=== PATIENT | male | born 1970 | race Caucasian/White ===

== ENCOUNTER 2020-05-16 10:22 | Outpatient (CLI) | payer OTHER | END 2020-05-16 10:23 | disposition home or self-care (01) | LOC: CTENTCT 10:22 | PROVIDERS: ATTEND Student in an Organized Health Care Education/Training Program | DX: H90.5 Unspecified sensorineural hearing loss (principal) | CPT/HCPCS: 70480 ==

== ENCOUNTER 2020-07-31 06:09 | Day surgery (SDC) | payer OTHER ==
[2020-07-30 13:43] VITALS: BMI 33.7
[2020-07-31] MEDS ORDERED: Lidocaine 1% w/Epinephrine 1:100K 20 ML VIAL ONE (06:28)
[2020-07-31] MEDS ORDERED: AFRIN NASAL MIST 15 ML BOT ONE ×2 (06:29→06:49)
[2020-07-31] MEDS ORDERED: Ciprofloxacin 0.2% Otic (0.25ML CONTAINER) ONE (06:29)
[2020-07-31] MEDS ORDERED: Fentanyl 100 MCG/2 ML VIAL ONE ×2 (06:47→09:53)
[2020-07-31] MEDS ORDERED: SUGAMMADEX SODIUM 200 MG/2 ML VIAL ONE (06:48)
[2020-07-31] MEDS ORDERED: Famotidine/PF 20 mg/2ml Vial ONE (06:48)
[2020-07-31] MEDS ORDERED: Bacitracin Zinc Ointment 30 gm TUBE ONE (07:52)
[2020-07-31] MEDS ORDERED: PHENYLEPHRINE-NS 100 MCG/ML 10 ML SYRINGE ONE (10:39)
[2020-07-31] MEDS ORDERED: Dexamethasone 20 MG/5 ML VIAL ONE (10:39)
[2020-07-31] MEDS ORDERED: Lidocaine 1% PF 5 ML VIAL ONE (10:39)
[2020-07-31] MEDS ORDERED: Ondansetron PF 4 MG/2 ML Vial ONE (10:39)
[2020-07-31] MEDS ORDERED: PROPOFOL 200 MG/20 ML VIAL ONE (10:39)
--- NOTE | 2020-08-01 07:29 | OP ---
DATE OF PROCEDURE: 07/31/2020 PREOPERATIVE DIAGNOSES: 1. Chronic Eustachian tube dysfunction 2. Septal deviation, turbinate hypertrophy and nasal valve collapse. POSTOPERATIVE DIAGNOSES: 1. Chronic Eustachian tube dysfunction 2. Septal deviation, turbinate hypertrophy and nasal valve collapse. PROCEDURES PERFORMED: 1. Bilateral myringotomy tubes. 2. Septoplasty, submucosal resection of inferior turbinates, and reconstruction of nasal valves and eustachian tube dilation. PERMIT: Procedures, benefits, risks including bleeding, infection, injury from anesthesia, allergic reaction, damage to the eardrum necessitating revision and repair, and scarring necessitating revision or repair were discussed and alternatives reviewed with the patient and family, who expressed understanding of the information. The consent form was signed and witnessed and a copy of the consent form is available in the paper chart. INDICATIONS: The patient presenting to the clinic with chronic nasal congestion, ear fullness and pressure which is uncomfortable that was refractory to medical therapy and autoinsufflation. Patient also noted nasal congestion with exam findings of septal deviation, turbinate hypertrophy and severe nasal valve collapse causing persistent nasal congestion and difficulty breathing, which was recalcitrant to medical management. Patient is now brought to the operating room for operative treatment. ASSISTANTS: None. FINDINGS: 1. Bilateral narrow ear canal. No perforation noted to the eardrum. 2. Severe septal deviation with septal spurs, turbinate hypertrophy and nasal valve collapse. DESCRIPTION OF OPERATION: Procedure #1: The patient was brought to the operating room, laid supine on the operating room table. Anesthesia was induced. A complete time-out was performed before commencement of the surgical procedure. Attention was turned to the right ear first. Microscope was brought in and the right ear canal was cleaned of obstructing cerumen. Next, the tympanic membrane was evaluated and found to be intact. There was no clear effusion seen at this time. A myringotomy blade was used to make a small radial incision in the inferior quadrant. Next, pressure equalizing tube was brought in place and seated in the incision with an alligator forceps. A Perry needle was then used to push the ear tube into a seated position in the eardrum with the outer lumen facing the external ear canal. Otic drops were placed in the ear and then attention was turned to the opposite side. Attention was turned to the left ear. The microscope was brought in and the left ear canal was cleaned of obstructing cerumen. Next, the tympanic membrane was evaluated and found to be intact. There was no clear effusion seen at this time. Myringotomy blade was used to make a small radial incision in the inferior quadrant. The three suction was used to remove any middle ear fluid. Next, the pressure equalizing tube was brought in place and seated in the incision with an alligator forceps, the Perry needle was then used to push the ear tube into a seated position in the eardrum with the outer lumen facing the external ear canal. Otic drops were placed in the ear and attention was turned to the opposite side. Procedure #2: The endoscope was prepared and the septum was infiltrated with 1% lidocaine with 1:100,000 epinephrine and 6 Afrin-soaked cottonoids were placed in the bilateral nasal cavities, 3 on each side. The patient was then prepped and draped in a usual fashion. The nose was then evaluated endoscopically. The patient was seen to have a severe septal deviation and septal spurs. At this point, a left [place] incision was made followed by elevation of the mucoperichondrial flaps with a combination of a 15 blade, [place] elevator and the [place]. The cartilaginous aspect of the septum was incised anteriorly, taking care to leave at least a 1.5 cm margin from the anterior septal border. Incision was made along the cartilage and the contralateral mucoperichondrial flap was then elevated as well. At this point, the swivel knife was used to remove the deviated cartilaginous portion of the nasal septum and then evaluation of the bony septum was seen and showed deviation causing obstruction. Double-action scissors were used to cut both superiorly and inferiorly and Lon's were used to remove the deviated aspects of the septum. The nose was then carefully analyzed bilaterally and it was clear that there was no obstruction from deviation and the remaining cartilaginous portions of the septum that were straight were replaced and a quilting mattress suture was then used to replace the mucoperichondrial flaps together with 4-0 chromic suture on a Oneal needle and the [place] incision was then closed in a running fashion with a 5-0 chromic suture. Next, attention was turned to the bilateral inferior turbinate reductions, which were then performed. Next, a stab incision was made along the anterior inferior head of each inferior turbinates followed by elevation with an elevator. An oscillating debrider was then placed in the pocket and used to remove the erectile tissue from inside the inferior turbinates on both sides thus reducing the size of the inferior turbinates bilaterally. After this was performed, both inferior turbinates were then lateralized and outfractured using a [place] elevator. At this point, attention was turned to the nasal valve reconstruction. Bilateral nasal valve stenosis and collapse were observed with the endoscope. The left nasal ala was stabilized with a double-prong skin hook and an implant was inserted into the left internal nasal wall at the level of the nasal vibrissae. An implant was then inserted deep to the cartilaginous structures of the nasal ala and the left nasal sidewall and seated superiorly laterally to the nasal bone edge to anchor the left nasal sidewall and prevent collapse. The implant was seated well and palpation of the nasal wall showed good position of the implant. Attention was then turned to the right side and the same procedure was performed. The right nasal ala was stabilized with a double-prong skin hook and an implant was inserted into the right internal nasal wall at the level of the nasal vibrissae. The implant was inserted deep to the cartilaginous structures of the nasal ala and the right nasal sidewall and seated superior lateral to the nasal bone edge to anchor the nasal sidewall and prevent collapse. The implant was seated well and palpation of the nasal wall showed good position of the implant. At this point, the nasal cavity and nose were evaluated with the endoscope and it was clear that there was no deviation or obstruction. Attention was turned to the ET bilaterally, the balloon dilator was used to identify the left RT orifice. The balloon was gently inserted and a gentle pressure was placed on the syringe without full depression to avoid excess damage dilation. The balloon was removed and the same procedure was performed on the right side. Bilateral Corral splints were placed and held with a 2-0 silk suture on the anterior septum. The endoscopes were used to evaluate and showed that the Corral splints were in good place. The patient tolerated the procedure well without complications and the patient was turned back to Anesthesia for emergence. BLOOD LOSS: 25 mL. DRAINS: No drains. SPECIMENS: No specimens. IMPLANTS: corral splints COMPLICATIONS: No complications. Job ID: [id number] [facility]
== END 2020-07-31 12:28 | disposition home or self-care (01) ==
LOC: SDC 06:09
PROVIDERS: ATTEND Student in an Organized Health Care Education/Training Program
PROC: 09SM0ZZ Reposition Nasal Septum, Open Approach (ICD-10-PCS; principal; 2020-07-31)
PROC: 099670Z Drainage of Left Middle Ear with Drainage Device, Via Natural or Artificial Opening (ICD-10-PCS; principal; 2020-07-31)
PROC: 097G8ZZ Dilation of Left Eustachian Tube, Via Natural or Artificial Opening Endoscopic (ICD-10-PCS; principal; 2020-07-31)
PROC: 09QK0ZZ Repair Nasal Mucosa and Soft Tissue, Open Approach (ICD-10-PCS; principal; 2020-07-31)
PROC: 097F8ZZ Dilation of Right Eustachian Tube, Via Natural or Artificial Opening Endoscopic (ICD-10-PCS; principal; 2020-07-31)
PROC: 09TL0ZZ Resection of Nasal Turbinate, Open Approach (ICD-10-PCS; principal; 2020-07-31)
PROC: 099570Z Drainage of Right Middle Ear with Drainage Device, Via Natural or Artificial Opening (ICD-10-PCS; principal; 2020-07-31)
DX: J34.2 Deviated nasal septum (principal); J34.3 Hypertrophy of nasal turbinates; J34.89 Other specified disorders of nose and nasal sinuses; H69.83 Other specified disorders of Eustachian tube, bilateral; J45.909 Unspecified asthma, uncomplicated; I10 Essential (primary) hypertension; Z79.899 Other long term (current) drug therapy; Z88.0 Allergy status to penicillin
CPT/HCPCS: 93005; 93010; J1100; J2405; J2704; J3010; S0028

== ENCOUNTER 2021-09-17 09:05 | Day surgery (SDC) | payer OTHER ==
[2021-09-10 16:23] VITALS: BMI 35.4
[2021-09-17] MEDS ORDERED: Fentanyl 100 MCG/2 ML VIAL ONE (10:30)
[2021-09-17] MEDS ORDERED: Ciprofloxacin 0.2% Otic (0.25ML CONTAINER) ONE (10:32)
[2021-09-17] MEDS ORDERED: Bacitracin Zinc Ointment 30 gm TUBE ONE (10:32)
[2021-09-17] MEDS ORDERED: Xylocaine 1% w/ Epi 1:100K 10 ML VIAL ONE (10:32)
[2021-09-17] MEDS ORDERED: Lidocaine 1% PF 5 ML VIAL ONE (11:26)
[2021-09-17] MEDS ORDERED: Dexamethasone 20 MG/5 ML VIAL ONE (11:26)
[2021-09-17] MEDS ORDERED: Glycopyrrolate 0.2 MG/ML 5 ML SYRINGE ONE (11:26)
[2021-09-17] MEDS ORDERED: PROPOFOL 200 MG/20 ML VIAL ONE (11:26)
[2021-09-17] MEDS ORDERED: Rocuronium Bromide 10 MG/ML (10ML VIAL) ONE (11:26)
[2021-09-17] MEDS ORDERED: ePHEDrine 50 MG/ML VIAL ONE (11:26)
[2021-09-17] MEDS ORDERED: PHENYLEPHRINE-NS 100 MCG/ML 10 ML SYRINGE ONE (11:26)
[2021-09-17] MEDS ORDERED: Ondansetron PF 4 MG/2 ML Vial ONE (11:26)
[2021-09-17] MEDS ORDERED: Phenylephrine 10 MG/ML VIAL ONE (12:10)
== END 2021-09-17 15:55 | disposition home or self-care (01) ==
LOC: SDC 09:05
PROVIDERS: ATTEND Student in an Organized Health Care Education/Training Program
PROC: 09Q50ZZ Repair Right Middle Ear, Open Approach (ICD-10-PCS; principal; 2021-09-17)
DX: S09.21XA Traumatic rupture of right ear drum, initial encounter (principal); H90.A22 Sensorineural hearing loss, unilateral, left ear, with restricted hearing on the contralateral side; H90.A31 Mixed conductive and sensorineural hearing loss, unilateral, right ear with restricted hearing on the contralateral side; H69.83 Other specified disorders of Eustachian tube, bilateral; H60.543 Acute eczematoid otitis externa, bilateral; Z87.891 Personal history of nicotine dependence; Z79.899 Other long term (current) drug therapy; Z88.0 Allergy status to penicillin; Z98.1 Arthrodesis status
CPT/HCPCS: 93005; 93010; C1781; J1100; J2370; J2405; J2704; J3010; J3490